=== PATIENT | female | born 1960 | race African-American/Black ===

== ENCOUNTER 2016-07-15 08:13 | Day surgery (SDC) | payer OTHER ==
[2016-07-15] MEDS ORDERED: NS 500 ML IV 500 ML IV ONE (08:39)
[2016-07-15] MEDS ORDERED: TETRACAINE 0.5% OPHTH 1 DOSE AFFEYE ONE ×3 (09:00→11:11)
[2016-07-15] MEDS ORDERED: VIGAMOX 0.5% OPHTH 1 DOSE AFFEYE ONE ×4 (09:01→11:20)
[2016-07-15] MEDS ORDERED: PROLENSA OPHTH 1 DOSE AFFEYE ONE (09:12)
[2016-07-15] MEDS ORDERED: ALPHAGAN-P OPHTH 1 DOSE AFFEYE ONE (09:13)
[2016-07-15] MEDS ORDERED: AK-DILATE 2.5% OPHTH 1 DOSE OP ONE ×3 (09:14→09:16)
[2016-07-15] MEDS ORDERED: CYCLOGYL 1% OPHTH 1 DOSE OP ONE ×3 (09:14→09:16)
[2016-07-15] MEDS ORDERED: MYDRIACIL OPHTH 1 DOSE AFFEYE ONE ×3 (09:14→09:16)
[2016-07-15] MEDS ORDERED: XYLOCAINE-MPF 1% IJ ONE (11:04)
[2016-07-15] MEDS ORDERED: BETADINE OPHTH SOLN 5% EACHEYE ONE (11:05)
[2016-07-15] MEDS ORDERED: ADRENALINE CHL INJ IJ ONE ×2 (11:05→11:11)
[2016-07-15] MEDS ORDERED: DUOVISC IO ONE ×2 (11:05→11:11)
[2016-07-15] MEDS ORDERED: BSS OPHTH (PLAIN) 500 ML with VANCOMYCIN HCL 500 MG VIAL 25 MG, ADRENALINE CHL INJ 1 MG IR ONE ×6 (11:07)
[2016-07-15 15:55] VITALS: BP 157/86
== END 2016-07-15 14:43 | disposition home or self-care (01) ==
LOC: SURG1 08:13
PROVIDERS: ATTEND Ophthalmology
PROC: 08DK3ZZ Extraction of Left Lens, Percutaneous Approach (ICD-10-PCS; principal; 2016-07-15 12:00)
PROC: 08RK3JZ Replacement of Left Lens with Synthetic Substitute, Percutaneous Approach (ICD-10-PCS; principal; 2016-07-15 12:00)
DX: H25.12 Age-related nuclear cataract, left eye (principal); H25.012 Cortical age-related cataract, left eye; H25.042 Posterior subcapsular polar age-related cataract, left eye
CPT/HCPCS: A4217; J0170; J3370

== ENCOUNTER 2016-09-09 08:23 | Day surgery (SDC) | payer OTHER ==
[2016-09-09] MEDS ORDERED: NS 500 ML IV 500 ML IV ONE (08:40)
[2016-09-09] MEDS ORDERED: TETRACAINE 0.5% OPHTH 1 DOSE AFFEYE ONE ×2 (08:45→11:40)
[2016-09-09] MEDS ORDERED: VIGAMOX 0.5% OPHTH 1 DOSE AFFEYE ONE ×5 (08:46→12:03)
[2016-09-09] MEDS ORDERED: ALPHAGAN-P OPHTH 1 DOSE AFFEYE ONE (08:57)
[2016-09-09] MEDS ORDERED: MYDRIACIL OPHTH 1 DOSE AFFEYE ONE ×2 (09:00→09:02)
[2016-09-09] MEDS ORDERED: AK-DILATE 2.5% OPHTH 1 DOSE OP ONE ×2 (09:00→09:02)
[2016-09-09] MEDS ORDERED: CYCLOGYL 1% OPHTH 1 DOSE OP ONE ×2 (09:00→09:02)
[2016-09-09] MEDS ORDERED: DIPRIVAN VIAL ONE (10:37)
[2016-09-09] MEDS ORDERED: BETADINE OPHTH SOLN 5% EACHEYE ONE (11:40)
[2016-09-09] MEDS ORDERED: DUOVISC IO ONE ×2 (11:44→11:51)
[2016-09-09] MEDS ORDERED: ADRENALINE CHL INJ IJ ONE ×2 (11:44→11:51)
[2016-09-09] MEDS ORDERED: XYLOCAINE-MPF 1% IJ ONE ×2 (11:44→11:51)
[2016-09-09] MEDS ORDERED: BSS OPHTH (PLAIN) 500 ML with VANCOMYCIN HCL 500 MG VIAL 25 MG, ADRENALINE CHL INJ 1 MG IR ONE ×6 (11:45)
[2016-09-09 13:04] VITALS: BP 133/77
== END 2016-09-09 12:30 | disposition home or self-care (01) ==
LOC: SURG1 08:23
PROVIDERS: ATTEND Ophthalmology
PROC: 08DJ3ZZ Extraction of Right Lens, Percutaneous Approach (ICD-10-PCS; principal; 2016-09-09 09:45)
PROC: 08RJ3JZ Replacement of Right Lens with Synthetic Substitute, Percutaneous Approach (ICD-10-PCS; principal; 2016-09-09 09:45)
DX: H25.11 Age-related nuclear cataract, right eye (principal); H25.011 Cortical age-related cataract, right eye; H25.041 Posterior subcapsular polar age-related cataract, right eye
CPT/HCPCS: A4217; J0170; J3370; J3490